=== PATIENT | female | born 1995 | race Caucasian/White ===

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

== ENCOUNTER → 2018-02-17 | Outpatient (CLI) | payer OTHER ==
[2018-02-17 15:37] VITALS: BP 99/67; PULSE 120; TEMP 98.2; BMI 28.1
--- NOTE | 2018-02-17 16:31 | P.HPOB ---
History of Present Illness H&P Date: 02/17/18 Chief Complaint: The patient is here for her routine gynecologic exam and for control. This is a 22-year-old with an LMP of 01/14/2018. The patient was previously on a generic form of OrthoNovum 777 control pills. She states her prescription ran out in July of this year. She then became and had a voluntary termination of in the late spring or early summer of this year. She states that she was about 5 weeks . Since then she has been using condoms. She is interested in restarting -control pills. She is without gynecologic complaints. She has been with her boyfriend since May 2017 and lives with him. Review of Systems The patient has gained 10 pounds over the last year. She denies respiratory, cardiac, or G.I. problems. Past Medical History Past Medical History: No Reported History Additional Past Medical History / Comment(s): PAST APPLICATION LEAD HISTORY: She has no history of STDs. History of Any Multi-Drug Resistant Organisms: None Reported Past Surgical History: No Surgical Hx Reported Additional Past Surgical History / Comment(s): VTP 10/2017. Past Psychological History: No Psychological Hx Reported Smoking Status: Current every day smoker (2 cigarettes per day) Past Alcohol Use History: None Reported Past Drug Use History: Marijuana (She states she quit after being caught using marijuana and is on probation.) Additional History: She is single and has been with her boyfriend since 05/2017 and lives with him. She works in the office at [employer] - Past Family History Mother Family Medical History: No Reported History Father Additional Family Medical History / Comment(s): Low blood pressure. Medications and Allergies Home Medications Medication Instructions Recorded Confirmed Type No Known Home Medications 02/17/18 02/17/18 History Allergies Allergy/AdvReac Type Severity Reaction Status Date / Time No Known Allergies Allergy Unverified 02/17/18 15:32 Exam Vital Signs Temp Pulse BP 02/17/18 15:34 98.2 F 120 H 99/67 Intake and Output 02/17/18 02/17/18 02/17/18 06:59 14:59 22:59 Other: Weight 65.317 kg Height 5'0" BMI 28.1. This is a well-developed well-nourished white female who is alert and oriented times 3 in no acute distress. HEENT: Within normal limits. The patient has a nasal piercing. NECK: Supple without mass or thyromegaly. CHEST AND LUNGS: Clear to auscultation. HEART: Regular rate and rhythm. BREASTS: Are without mass or discharge. There are bilateral nipple piercings. AXILLARY EXAM: Negative for adenopathy. BACK: Negative for CVA tenderness. ABDOMEN: Soft, nontender, without palpable masses. PELVIC EXAM: Normal external genitalia. Cervix and vagina shows a creamy yellowish discharge with odor. There are no cervical or vaginal lesions noted. There is no cervical motion tenderness. There is no evidence of prolapse. The uterus is midposition, nongravid size and nontender. There are no palpable adnexal masses or tenderness. RECTAL EXAM: deferred EXTREMITIES: Nontender. IMPRESSION: 1. 22-year-old female vaginal discharge consistent with bacterial vaginosis. 2. The patient is requesting to be restarted on control pills. PLAN: 1. Pap smear was deferred until age 23. 2. Self breast awareness was discussed with the patient. 3. STD screening will be done today including GC and chlamydia testing from the cervix and blood tests which will include HIV, RPR, hepatitis B surface antigen and hepatitis C antibody. 4. Metronidazole 500 mg BID times 7 days. The electronic prescription will be sent to [facility] on . 5. The prescription for orthoNovum 777 or generic will be sent to the same pharmacy. She will start this on the Friday following the onset of her next normal menstrual period. 6. We have had a long talk regarding STD prevention. I have stressed the importance of limiting sexual partners and using condoms if she is sexually active. I have also recommended the HPV vaccination which she will consider. She can go to the health department for this. 7. She will return in one year.
[2018-02-18 04:10] LABS: Hepatitis C IgG Antibody Non-Reactive (Non-Reactive)
[2018-02-18 05:21] LABS: HIV 1 AB Non-Reactive (Non-Reactive); HIV AB P24 Non-Reactive (Non-Reactive); HIV P24 AG Non-Reactive (Non-Reactive)
== END ==
LOC: WWCWWP 15:20
PROVIDERS: ATTEND Obstetrics & Gynecology
DX: Z11.3 Encounter for screening for infections with a predominantly sexual mode of transmission (principal)
CPT/HCPCS: 36415; 86780; 86803; 87340; 87390; 87491; 87591

== ENCOUNTER 2020-03-03 08:50 | Inpatient (IN) | payer OTHER ==
[2020-03-03] MEDS ORDERED: OXYTOCIN 10 UNIT/ML 1 ML VIAL IM PRN (09:24)
[2020-03-03] MEDS ORDERED: LIDOCAINE 0.5% (PF) 5 MG/ML (50 ML SDV) SQ PRN (09:24)
[2020-03-03] MEDS ORDERED: METHYLERGONOVINE 0.2 MG/ML 1 ML AMP IM PRN (09:24)
[2020-03-03] MEDS ORDERED: TERBUTALINE 1 MG/ML VIAL SQ PRN (09:24)
[2020-03-03] MEDS ORDERED: CARBOPROST TROMETHAMINE 250 MCG/ML 1 ML AMP IM PRN (09:24)
[2020-03-03] MEDS: LACTATED RINGERS 1,000 ML IV SCH ×3 (10:08→16:25)
[2020-03-03 10:21] LABS: ALT 9 U/L (4-34); AST 17 U/L (14-36); African American GFR (CKD) >90 (>60 ml/min/1.73 sqM); Basophils # (A) 0.1 k/uL (0-0.2); Basophils % (A) 1 %; Blood Urea Nitrogen 10 mg/dL (7-17); Eosinophils # (A) 0.2 k/uL (0-0.7); Eosinophils % (A) 2 %; HCT 33.7 % (34.0-46.0); HGB 11.1 gm/dL (11.4-16.0); LDH 336 U/L (313-618); Lymphocytes # (A) 2.3 k/uL (1.0-4.8); Lymphocytes % (A) 23 %; MCH 26.7 pg (25.0-35.0); MCHC 32.8 g/dL (31.0-37.0); MCV 81.3 fL (80.0-100.0); Mean Platelet Volume 8.3; Monocytes # (A) 0.5 k/uL (0-1.0); Monocytes % (A) 5 %; Neutrophils # (A) 6.7 k/uL (1.3-7.7); Neutrophils % (A) 67 %; Non-African American GFR(CKD) >90 (>60 ml/min/1.73 sqM); Platelet Count 236 k/uL (150-450); RBC 4.15 m/uL (3.80-5.40); RDW 14.8 % (11.5-15.5); Uric Acid 4.9 mg/dL (3.7-7.4)
--- NOTE | 2020-03-03 13:15 | P.HPOB ---
History of Present Illness H&P Date: 03/03/20 Chief Complaint: SROM 25-year-old presents at 39 weeks and 1 day with spontaneous rupture membranes. Her water broke around 9:00 this morning and clear fluid noted on p resentation. Her cervix is 3cm dilated, 70% effaced, and -2 station. She is edwige irregularly. heart tones 135 with moderate variability and reactive. Review of Systems All systems: negative Constitutional: Denies chills, Denies fever Eyes: denies blurred vision, denies pain Ears, nose, mouth and throat: Denies headache, Denies sore throat Cardiovascular: Denies chest pain, Denies shortness of breath Respiratory: Denies cough Gastrointestinal: Denies abdominal pain, Denies diarrhea, Denies nausea, Denies vomiting Genitourinary: Denies dysuria, Denies hematuria Musculoskeletal: Denies myalgias Integumentary: Denies pruritus, Denies rash Neurological: Denies numbness, Denies weakness Psychiatric: Denies anxiety, Denies depression Endocrine: Denies fatigue, Denies weight change Past Medical History Past Medical History: No Reported History Additional Past Medical History / Comment(s): 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 History of Any Multi-Drug Resistant Organisms: None Reported Past Surgical History: No Surgical Hx Reported Additional Past Surgical History / Comment(s): VTP 10/2017. Past Anesthesia/Blood Transfusion Reactions: No Reported Reaction Past Psychological History: No Psychological Hx Reported Smoking Status: Never smoker Past Alcohol Use History: None Reported Past Drug Use History: Marijuana Additional Drug Use History / Comment(s): THC use in beginning of - Past Family History Mother Family Medical History: No Reported History Father History Unknown: Yes Additional Family Medical History / Comment(s): Low blood pressure. Medications and Allergies Home Medications Medication Instructions Recorded Confirmed Type Pnv No.95/Ferrous Fum/Folic AC 1 tab PO DAILY 03/03/20 03/03/20 History [ Multivitamin Tablet] Allergies Allergy/AdvReac Type Severity Reaction Status Date / Time No Known Allergies Allergy Unverified 03/03/20 09:14 Exam Osteopathic Statement: *. No significant issues noted on an osteopathic structural exam other than those noted in the History and Physical/Consult. Vital Signs Temp Pulse Resp BP 03/03/20 09:40 97.4 F L 91 16 161/85 03/03/20 09:02 97.4 F L 91 16 161/85 Intake and Output 03/02/20 03/03/20 03/03/20 22:59 06:59 14:59 Other: Weight 83.007 kg Heart: Regular rate and rhythm Lungs: Clear to auscultation bilaterally Abdomen: Soft, nontender Extremities: Negative Homans sign Results Result Diagrams: 03/03/20 09:55 03/03/20 09:55 Abnormal Lab Results - Last 24 Hours (Table) 03/03/20 Range/Units 09:55 Hgb 11.1 L (11.4-16.0) gm/dL Hct 33.7 L (34.0-46.0) % Assessment and Plan (1) Spontaneous rupture of membranes Current Visit: Yes Status: Acute Code(s): UOC6311 - SNOMED Code(s): 032504047 (2) Normal labor Current Visit: Yes Status: Acute Code(s): O80 - ENCOUNTER FOR FULL-TERM UNCOMPLICATED DELIVERY; Z37.9 - OUTCOME OF DELIVERY, UNSPECIFIED SNOMED Code(s): 23192161 Plan: 1. Admission to family place 2. Expectant management 3. Pitocin augmentation if required. 4. Anticipate normal vaginal delivery
[2020-03-03] MEDS ORDERED: HYDROCORTISONE 2.5% RECTAL CREAM 30 GM TUBE RECTAL PRN (19:04)
[2020-03-03] MEDS ORDERED: ACETAMINOPHEN TAB 325 MG TAB PO PRN (19:04)
[2020-03-03] MEDS ORDERED: SIMETHICONE 80 MG CHEWABLE PO PRN (19:04)
[2020-03-03] MEDS ORDERED: BENZOCAINE/MENTHOL SPRAY 1 GM/SPRAY AEROSOL TOPICAL PRN (19:04)
[2020-03-03] MEDS ORDERED: diphenhydrAMINE 50 MG CAP PO PRN (19:04)
[2020-03-03] MEDS ORDERED: MEASLES-MUMPS-RUBELLA VACC/PF 12,500 UNIT/0.5 ML VIAL SQ ONE (19:04)
[2020-03-03] MEDS ORDERED: LANOLIN CREAM 5 GM TUBE TOPICAL PRN (19:04)
[2020-03-03] MEDS ORDERED: HYDROcodone/APAP 5-325MG 1 EACH TAB PO PRN (19:04)
[2020-03-03] MEDS ORDERED: diphenhydrAMINE 50 MG/ML 1 ML VIAL IVP PRN ×2 (19:04)
[2020-03-03] MEDS ORDERED: ZOLPIDEM 5 MG TAB PO PRN (19:04)
[2020-03-03] MEDS ORDERED: diphenhydrAMINE 25 MG CAP PO PRN (19:04)
--- NOTE | 2020-03-03 19:06 | P.PROBDLV ---
Vaginal Delivery Note - . Vaginal Delivery Note: Patient progressed complete and pushed with spontaneous vaginal delivery of a viable female over an intact perineum. Falling deliver the head patient placed in the deep Victoria position anterior shoulder was then delivered gentle downward traction from left occiput anterior position. Once anterior shoulders delivered posterior shoulder was easily delivered followed by the remainder the baby. Mouth nares were then bulb suctioned and baby was placed on mother's abdomen where the umbilical cord was clamped cut usual fashion. Nursery personnel was present to assume care in the umbilical cord was left pulsate for 40 seconds prior to clamping and cutting. scores 9 and 9 at one and 5 minutes respectively. Placenta was then delivered intact Pitocin was added to the IV. A's small avulsion in the right labia was noted and she had discussed repair versus leaving alone. She has declined repair understanding she will have some burning when she urinates but she is encouraged to use dermoplasty spray to help with this. Both mother and baby are stable following delivery.
[2020-03-03] MEDS ORDERED: OXYTOCIN 20 UNITS/1000 ML NS 1,000 ML IV SCH (19:15)
--- NOTE | 2020-03-03 19:19 | P.PN ---
Progress Note - Text Progress Note Date: 03/03/20 Was called back into reevaluate the patient as she had a rash on her left shoulder. Patient relates that the rash began proxy With the and really doesn't itch or change it is been essentially the same spot and does not made any significant changes since she noticed it. It does not itch or cause any other problems grossly it appears to be an atopic dermatitis and will plan to at least try a steroid cream and see if that we will decrease her rash next few days. If not we'll refer back to primary care provider for further testing and alternative treatments.
[2020-03-03] MEDS: IBUPROFEN 600 MG TAB PO PRN (20:37)
[2020-03-04] MEDS: SENNOSIDES-DOCUSATE SODIUM 1 EACH TAB PO SCH ×3 (05:43→19:36)
[2020-03-04 06:05] LABS: Basophils % (A) 0 %; Eosinophils # (A) 0.2 k/uL (0-0.7); Eosinophils % (A) 1 %; HCT 29.8 % (34.0-46.0); Hypochromasia Slight; Lymphocytes # (A) 2.8 k/uL (1.0-4.8); Lymphocytes % (A) 18 %; MCH 26.2 pg (25.0-35.0); MCV 82.1 fL (80.0-100.0); Mean Platelet Volume 8.9; Monocytes # (A) 0.9 k/uL (0-1.0); Monocytes % (A) 5 %; Neutrophils # (A) 11.5 k/uL (1.3-7.7); Neutrophils % (A) 74 %; Platelet Count 202 k/uL (150-450); RBC 3.62 m/uL (3.80-5.40); RDW 14.6 % (11.5-15.5); WBC 15.5 k/uL (3.8-10.6)
[2020-03-04 06:33] LABS: HGB 9.5 gm/dL (11.4-16.0)
[2020-03-04 09:54] VITALS: RESP 16
[2020-03-04] MEDS: TRIAMCINOLONE 0.1% CREAM 80 GM TUBE TOPICAL SCH ×2 (09:54→09:55)
--- NOTE | 2020-03-04 10:57 | P.PNOBGVD ---
Subjective - Subjective Principal diagnosis: day 1 Interval history: Luisa is doing very well day 1. She is ambulating, voiding and she is tolerating her diet. She voices no complaints. Vital signs are stable and afebrile. Heart regular, lungs clear, extremities without pain. Abdomen soft and uterus is firm. She plans to stay until tomorrow. Objective - Latest Vital Signs Latest vital signs: Vital Signs Temp Pulse Resp BP Pulse Ox 03/04/20 08:00 98.8 F 88 16 119/64 03/04/20 04:00 97.5 F L 91 18 137/87 03/03/20 21:00 97.3 F L 89 16 121/72 03/03/20 20:30 97.5 F L 84 16 115/75 03/03/20 20:00 97.5 F L 76 16 112/63 99 03/03/20 19:59 97.5 F L 86 16 112/63 99 03/03/20 19:45 97.5 F L 83 16 112/63 03/03/20 19:30 97.3 F L 81 16 121/76 03/03/20 19:15 96.3 F L 97 16 129/73 03/03/20 19:00 98.8 F 97 16 129/73 Intake and Output 03/03/20 03/04/20 03/04/20 22:59 06:59 14:59 Other: # Voids 1 2 1 - Exam Lungs: bilateral: normal Chest: Normal S1, Normal S2 Extremities: Present: normal Abdomen: Present: normal appearance, soft Uterus: Present: normal, firm - Labs Labs: Abnormal Lab Results - Last 24 Hours (Table) 03/04/20 Range/Units 05:49 WBC 15.5 H (3.8-10.6) k/uL RBC 3.62 L (3.80-5.40) m/uL Hgb 9.5 L D (11.4-16.0) gm/dL Hct 29.8 L (34.0-46.0) % Neutrophils # 11.5 H (1.3-7.7) k/uL
[2020-03-04] MEDS: IBUPROFEN 600 MG TAB PO PRN ×2 (12:14→23:20)
[2020-03-05 09:04] VITALS: BP 116/76; PULSE 84; TEMP 98
[2020-03-05] MEDS: LACTATED RINGERS 1,000 ML IV SCH (09:05)
[2020-03-05] MEDS: SENNOSIDES-DOCUSATE SODIUM 1 EACH TAB PO SCH (09:05)
[2020-03-05] MEDS: TRIAMCINOLONE 0.1% CREAM 80 GM TUBE TOPICAL SCH ×2 (09:43)
--- NOTE | 2020-03-05 10:13 | P.DS ---
Providers Date of admission: 03/03/20 09:15 Expected date of discharge: 03/05/20 Attending physician: Maritza Kline Primary care physician: Stated None Hospital Course: Luisa is doing very well day 2. She is ambulating, voiding and tolerating her diet. She voices no complaints and is requesting discharge to home today. Vital signs are stable and afebrile. Heart regular, lungs clear, extremities without pain. Abdomen soft bowel sounds are noted in her urine lochia is reported to be light. Assessment day 2. Plan discharged home follow up with Dr. Kline in 6 weeks. Prescription for Motrin and breast pump are provided. All questions are answered for her and she is stable for discharge this time. Patient Condition at Discharge: Good Plan - Discharge Summary New Discharge Prescriptions: New Ibuprofen [Motrin] 600 mg PO Q6HR PRN #30 tab PRN Reason: Pain No Action Pnv No.95/Ferrous Fum/Folic AC [ Multivitamin Tablet] 1 tab PO DAILY Discharge Medication List Pnv No.95/Ferrous Fum/Folic AC [ Multivitamin Tablet] 1 tab PO DAILY 03/03/20 [History] Ibuprofen [Motrin] 600 mg PO Q6HR PRN #30 tab 03/05/20 [Rx] Follow up Appointment(s)/Referral(s): Maritza Kline DO [Doctor of Osteopathic Medicine] - 6 Weeks Activity/Diet/Wound Care/Special Instructions: No heavy lifting, limit stairs and driving, and pelvic rest. If any high temperatures, heavy bleeding, or severe pain call my office Discharge Disposition: HOME SELF-CARE
== END 2020-03-05 11:30 | disposition home or self-care (01) | DRG 807 ==
LOC: FBPOP 08:50 → 4FBP 09:15
PROVIDERS: ADMIT Obstetrics & Gynecology; ATTEND Obstetrics & Gynecology
PROC: 10E0XZZ Delivery of Products of Conception, External Approach (ICD-10-PCS; principal; 2020-03-03)
DX: O80 Encounter for full-term uncomplicated delivery (principal); Z37.0 Single live birth; Z3A.39 39 weeks gestation of pregnancy
CPT/HCPCS: 59025; 82565; 83615; 84112; 84450; 84460; 84520; 84550; 85025; 86850; 86900; 86901; 90707; 99213